=== PATIENT | male | born 1995 | race African-American/Black ===

== ENCOUNTER 2020-06-02 21:12 | Emergency (ER) | payer BC, OTHER ==
[~2020-06-02] VITALS: Ht 188 cm; Wt 81.7 kg
[2020-06-02] MEDS ORDERED: NOHOMEMEDICATIONS (21:17)
[2020-06-02 21:52] VITALS: BP 110/74
--- NOTE | 2020-06-03 12:20 | EKG ---
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
== END 2020-06-02 21:52 | disposition home or self-care (01) ==
LOC: ER 21:12
DX: R55 Syncope and collapse (principal); J45.909 Unspecified asthma, uncomplicated; Z91.012 Allergy to eggs